=== PATIENT | female | born 1995 | race Caucasian/White ===

== ENCOUNTER 2017-11-18 21:21 | Outpatient (CLI) | payer OTHER | END 2017-11-18 21:22 | disposition critical access hospital (66) | LOC: EMS 21:21 | PROVIDERS: ATTEND Surgery | DX: R10.9 Unspecified abdominal pain (principal) | CPT/HCPCS: A0425; A0429 ==

== ENCOUNTER 2017-11-18 21:38 | Emergency (ER) | payer OTHER ==
[2017-11-18 22:10] LABS: BASOPHILS % (AUTO) 0.5 %; EOSINOPHILS % (AUTO) 0.3 %; LYMPHOCYTES # (AUTO) 1.2 10^3/uL (1.5-3.5); LYMPHOCYTES % (AUTO) 13.6 %; MEAN CORPUSCULAR HEMOGLOBIN 28.3 pg (27.0-31.0); MEAN CORPUSCULAR VOLUME 88.4 fL (81.0-99.0); MEAN PLATELET VOLUME 8.8 fL (7.9-10.8); MONOCYTES # (AUTO) 0.4 10^3/uL (0.0-1.0); MONOCYTES % (AUTO) 4.3 %; NEUTROPHILS # (AUTO) 7.5 10^3/uL (1.5-6.6); NEUTROPHILS % (AUTO) 81.3 %; PLT - PLATELET COUNT 312 10^3/uL (130-450); RED BLOOD COUNT 4.94 10^6/uL (4.20-5.40); RED CELL DISTRIBUTION WIDTH 14.1 % (12.0-15.0); WHITE BLOOD COUNT 9.2 x10^3/uL (4.8-10.8)
[2017-11-18 22:17] LABS: ALBUMIN 4.5 g/dL (3.2-5.5); ALBUMIN/GLOBULIN RATIO 1.2 (1.0-2.2); BILIRUBIN,TOTAL 0.6 mg/dL (0.2-1.0); CALCIUM 9.4 mg/dL (8.5-10.3); CREATININE 0.7 mg/dL (0.4-1.0); TOTAL PROTEIN 8.2 g/dL (6.7-8.2)
[2017-11-18] MEDS ORDERED: SODIUM CHLORIDE 0.9% 1,000 ML IV ONE (22:51)
[2017-11-18] MEDS ORDERED: MORPHINE 2 MG/ML CARPUJECT IVP STA (22:51)
[2017-11-18] MEDS ORDERED: ONDANSETRON 4 MG/2 ML VIAL IVP STA (22:51)
[2017-11-18] MEDS ORDERED: IOPAMIDOL-300 100 ML VIAL ONE (23:16)
[2017-11-18] MEDS ORDERED: IOPAMIDOL-300 100 ML VIAL IVP ONE (23:28)
--- NOTE | 2017-11-18 23:50 | CT Report ---
EXAM: CT ABDOMEN AND PELVIS EXAM DATE: 11/18/2017 11:31 PM. CLINICAL HISTORY: Crohns, abdominal pain. COMPARISONS: None. TECHNIQUE: Routine helical CT imaging was performed through the abdomen and pelvis. IV contrast: 100M L ISOVUE 300. Enteric contrast: No. Reconstructions: Coronal and sagittal. In accordance with CT protocol optimization, one or more of the following dose reduction techniques w ere utilized for this exam: automated exposure control, adjustment of mA and/or KV based on patient s ize, or use of iterative reconstructive technique. FINDINGS: Lung Bases: No acute findings. Liver: Normal. No masses. Gallbladder/Bile Ducts: Unremarkable. Spleen: Normal. Pancreas: Normal. Adrenal Glands: Normal. Kidneys: Normal. No masses or hydronephrosis. Peritoneal Cavity/Bowel: No acute findings. Right-sided colon postsurgical change. No dilated bowel l oops are seen. Evaluation limited without oral contrast. No definite bowel wall thickening or acute i nflammation seen. No free fluid or free air. Pelvic Organs: Normal. The bladder and visualized pelvic organs are within normal limits. Dominant fo llicle in the right ovary measures 2 cm. Vasculature: No acute findings. Bones: No acute bone findings. IMPRESSION: No acute findings. [facility] Referring Provider Line: [phone] SITE ID: [id number]
[2017-11-18 23:59] VITALS: BP 105/59
[2017-11-19 00:01] LABS: BILIRUBIN,URINE NEGATIVE (NEGATIVE); GLUCOSE, URINE (UA) NEGATIVE (NEGATIVE); KETONES,URINE (UA) 40 mg/dL (NEGATIVE); LEUKOCYTE ESTERASE, URINE NEGATIVE (NEGATIVE); NITRITE,URINE NEGATIVE (NEGATIVE); OCCULT BLOOD,URINE TRACE-INTA (NEGATIVE); PROTEIN,URINE NEGATIVE (NEGATIVE); UROBILINOGEN,URINE 0.2 (NORMAL) E.U./dL (NORMAL)
[2017-11-19 00:02] LABS: CLARITY,URINE CLEAR (CLEAR)
[2017-11-19 00:04] LABS: HCG UR QUAL NEGATIVE
--- NOTE | 2017-11-19 00:27 | ED Physician Documentation ---
PD HPI ABD PAIN - Stated complaint Stated Complaint: ABD PAIN - Chief complaint Chief Complaint: Abd Pain - History obtained from History obtained from: Patient, Friend - History of Present Illness Timing - onset: How many weeks ago (2) Timing - details: Gradual onset, Intermittant Quality: Cramping, Aching, Sharp Location: RUQ, RLQ Associated symptoms: Nausea, Near syncope / syncope. No: Fever, Vomiting, Diarrhea, Constipation Similar symptoms before: Work up / diagnostics, Treatment Recently seen: Not recently seen - Additional information Additional information: Patient is a 22 year old female with a history of crohns, s/p resection who is presenting to the emergency department for abdominal pain. patient states that it has been going on for over a week but she just recently moved out here and doesnt' have a doctor yet. Patient states that she has had adverse reactions to multiple drugs in the past so does not take regular therapy. Patient complains of mild nausea but no vomiting, diarrhea or constipation. Review of Systems Constitutional: denies: Fever, Chills Eyes: denies: Decreased vision, Photophobia Ears: reports: Reviewed and negative Nose: reports: Reviewed and negative Throat: reports: Reviewed and negative Cardiac: reports: Reviewed and negative Respiratory: denies: Cough, Wheezing GI: reports: Abdominal Pain, Nausea. 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 : None HEENT: None Psych: None Musculoskeletal: Rheumatoid arthritis Derm: None - Past Surgical History Past Surgical History: Yes General: Appendectomy, Other HEENT: Tonsil/Adenoidectomy - Present Medications Home Medications: Ambulatory Orders Medication Instructions Recorded Confirmed Budesonide [Uceris] 9 mg PO DAILY #30 tabdr...er 11/19/17 Ondansetron Odt [Zofran Odt] 4 mg TL Q6H PRN #20 tablet 11/19/17 Oxycodone HCl/Acetaminophen 1 - 2 each PO Q6H PRN #14 tablet 11/19/17 [Percocet 5-325 mg Tablet] - Allergies Allergies/Adverse Reactions: Allergies Allergy/AdvReac Type Severity Reaction Status Date / Time No Known Drug Allergies Allergy Verified 11/18/17 21:43 - Social History Does the pt smoke?: No Smoking Status: Never smoker Does the pt drink ETOH?: No Does the pt have substance abuse?: No - Immunizations Immunizations are current?: No - POLST Patient has POLST: No PD ED PE NORMAL - Vitals Vital signs reviewed: Yes - General General: Alert and oriented X 3, No acute distress - HEENT HEENT: Atraumatic, PERRL - Neck Neck: Supple, no meningeal sign - Cardiac Cardiac: RRR, No murmur - Respiratory Respiratory: No respiratory distress - Derm Derm: Normal color, Warm and dry, No rash - Extremities Extremities: No deformity - Neuro Neuro: Alert and oriented X 3, No motor deficit, No sensory deficit, Normal speech Eye Opening: Spontaneous Motor: Obeys Commands Verbal: Oriented GCS Score: 15 - Psych Psych: Normal mood PD ED PE EXPANDED - HEENT HEENT: Dry mucous membranes - Abdomen Abdomen: Tender to palpation, RUQ, RLQ. No: Distended, Rebound, Guarding Results - Vitals Vitals: Vital Signs - 24 hr 11/18/17 11/18/17 11/18/17 21:39 23:06 23:10 Temperature 36.7 C Heart Rate 100 89 82 Respiratory 20 18 17 Rate Blood Pressure 117/80 118/85 H O2 Saturation 97 97 11/18/17 11/18/17 23:53 23:57 Temperature Heart Rate 89 78 Respiratory 17 17 Rate Blood Pressure 105/59 L O2 Saturation 100 100 Oxygen O2 Source CPAP - Labs Labs: Laboratory Tests 11/18/17 11/18/17 11/18/17 21:53 21:53 23:50 WBC 9.2 RBC 4.94 Hgb 14.0 Hct 43.7 MCV 88.4 MCH 28.3 MCHC 32.0 RDW 14.1 Plt Count 312 MPV 8.8 Neut # 7.5 H Lymph # 1.2 L Grainger # 0.4 Eos # 0.0 Baso # 0.0 Absolute Nucleated RBC 0.00 Nucleated RBC % 0.0 Sodium 137 Potassium 3.9 Chloride 102 Carbon Dioxide 23 Anion Gap 12.0 BUN 12 Creatinine 0.7 Estimated GFR (MDRD) 106 Glucose 92 Calcium 9.4 Total Bilirubin 0.6 AST 20 ALT 17 Alkaline Phosphatase 56 Total Protein 8.2 Albumin 4.5 Globulin 3.7 Albumin/Globulin Ratio 1.2 Lipase 23 Urine Color YELLOW Urine Clarity CLEAR Urine pH 6.0 Ur Specific [place] 1.015 Urine Protein NEGATIVE Urine Glucose (UA) NEGATIVE Urine Ketones 40 H Urine Occult Blood TRACE-INTA Urine Nitrite NEGATIVE Urine Bilirubin NEGATIVE Urine Urobilinogen 0.2 (NORMAL) Ur Leukocyte Esterase NEGATIVE Ur Microscopic Review NOT INDICATED Urine Culture Comments NOT INDICATED Urine HCG, Qual 11/18/17 23:50 WBC RBC Hgb Hct MCV MCH MCHC RDW Plt Count MPV Neut # Lymph # Grainger # Eos # Baso # Absolute Nucleated RBC Nucleated RBC % Sodium Potassium Chloride Carbon Dioxide Anion Gap BUN Creatinine Estimated GFR (MDRD) Glucose Calcium Total Bilirubin AST ALT Alkaline Phosphatase Total Protein Albumin Globulin Albumin/Globulin Ratio Lipase Urine Color Urine Clarity Urine pH Ur Specific [place] 1.015 Urine Protein Urine Glucose (UA) Urine Ketones Urine Occult Blood Urine Nitrite Urine Bilirubin Urine Urobilinogen Ur Leukocyte Esterase Ur Microscopic Review Urine Culture Comments Urine HCG, Qual NEGATIVE - Rads (name of study) Ct abdomen/pelvis Radiology: Final report received (no acute infection, inflammation abscess or fluid collection appreciated), See rad report PD MEDICAL DECISION MAKING - ED course Complexity details: reviewed old records, reviewed results, re-evaluated patient , considered differential, d/w patient ED course: Patient was seen and examined at bedside. IV access was gained, labs were drawn. Patient was treated with IV fluids, zofran and morphine. Imaging was ordered. Patient's diagnostics were all within normal limits. patient did required a follow up colonoscopy but was appropriate for follow up in an outpatient setting. prescriptions were written and patient was started on steroids. Patient was given detailed discharge and follow up instructions and was stable for discharge with outpatient follow up. Departure - Departure Disposition: 01 Home, Self Care Clinical Impression: Acute Crohn's disease Condition: Good Instructions: Disease Crohn Dc Follow-Up: Lambert Parnell MD [Provider Admit Priv/Credential] - Within 1 week Prescriptions: Budesonide [Uceris] 9 mg PO DAILY #30 tabdr...er Ondansetron Odt [Zofran Odt] 4 mg TL Q6H PRN #20 tablet PRN Reason: Nausea / Vomiting Oxycodone HCl/Acetaminophen [Percocet 5-325 mg Tablet] 1 - 2 each PO Q6H PRN # 14 tablet PRN Reason: pain Comments: Your diagnostics today revealed dehydration but no sign of abscess or infection. You will be started on a steroid and pain medication but you will need another colonoscopy. You should follow up with [facility] to find out who your pmd is and GI referral. You can call Dr. Lopez's office if you are unable to schedule an appointment with your doctor but it is important that you establish care with a GI specialist. You can take tylenol as needed for pain and percocet for breakthrough pain. It is important that you stay well hydrated. You may return to the emergency department at any time for new, worsening or uncontrollable symptoms.
== END 2017-11-19 00:47 | disposition home or self-care (01) ==
LOC: ED 21:38
DX: K50.90 Crohn's disease, unspecified, without complications (principal); E86.0 Dehydration
CPT/HCPCS: 36415; 74177; 80053; 81003; 81025; 83690; 85025; 96361; 96374; 99284; 99285; Q9967; 81001; 87086

== ENCOUNTER 2019-05-09 22:33 | Emergency (ER) | payer OTHER ==
[2019-05-09] MEDS ORDERED: LIDOCAINE-EPINEPH-TETRACAINE 3 ML SYRINGE TOP STA (22:55)
--- NOTE | 2019-05-09 23:22 | ED Physician Documentation ---
PD HPI ANIMAL BITE - Stated complaint Stated Complaint: DOG BITE LT - Chief complaint Chief Complaint: Laceration - History obtained from History obtained from: Patient - History of Present Illness Location of injury(ies): Left hand Details of the event: Dog, Pet animal, Well appearing, Immunized, Provoked, Animal can be observed Timing - onset: Enter time (22:20) Timing - details: Abrupt onset Pain level now: 5 Improved by: Rest Worsened by: Moving, Palpating Associated symptoms: No: Weakness, Numbness Similar symptoms before: Has not had sx before Recently seen: Not recently seen - Additional information Additional information: patient is right-hand dominant. Tonight at approximately 10:20 she was bitten by her newly-adopted dog when trying to break up a fight between her two dogs. c/o left second finger tip pain. 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 : None HEENT: None Psych: None Musculoskeletal: Rheumatoid arthritis Derm: None - Past Surgical History Past Surgical History: Yes General: Appendectomy, Other HEENT: Tonsil/Adenoidectomy - Present Medications Home Medications: Ambulatory Orders Medication Instructions Recorded Confirmed Budesonide [Uceris] 9 mg PO DAILY #30 tabdr...er 11/19/17 Ondansetron Odt [Zofran Odt] 4 mg TL Q6H PRN #20 tablet 11/19/17 Oxycodone HCl/Acetaminophen 1 - 2 each PO Q6H PRN #14 tablet 11/19/17 [Percocet 5-325 mg Tablet] Doxycycline Hyclate 100 mg PO BID #9 capsule 05/10/19 HYDROcod/ACETAM 5/325 [[place] 5/325] 1 - 2 ea PO Q6H PRN #14 tablet 05/10/19 - Allergies Allergies/Adverse Reactions: Allergies Allergy/AdvReac Type Severity Reaction Status Date / Time No Known Drug Allergies Allergy Verified 05/09/19 22:41 - Social History Does the pt smoke?: No Smoking Status: Never smoker Does the pt drink ETOH?: Yes Does the pt have substance abuse?: Yes Substance Use and Type: Marijuana - Immunizations Immunizations are current?: Yes - POLST Patient has POLST: No PD ED PE NORMAL - Vitals Vital signs reviewed: Yes - General General: Alert and oriented X 3, No acute distress, Well developed/nourished PD ED PE EXPANDED - Extremities Extremities: Other (left second digit (finger): there is bony tenderness of distal phalanx but nontender at PIP and DIP joints with FROM intact (flexion and extension) in these joints. The fingernail is avulsed from the proximal nail fold except at the lateral (ulnar) corner where it is in place. The medial corner (proximal/medial nail) is avulsed from the fold, and the rest of the nail is avulsed along with the skin of the nail fold (the proximal nail fold remains attached to the proximal nail). the remainder of the nail is firmly adhered to the nail bed and there is no evidence of laceration) Results - Vitals Vitals: Oxygen O2 Source Room air - Rads (name of study) xray left second finger Radiology: Prelim report reviewed, See rad report Procedures - Regional nerve block Nerve block site: Digital - note digit(s) (left second finger) Nerve block anesthesia: Lidocaine 1%, Other (bupvicaine 0.5% (50:50 mix with li docaine 1%)) Nerve block aftercare: Moderate Anesthesia (required second injections due to inadequate anesthesia with initial dosing; a total of 8 cc used) PD MEDICAL DECISION MAKING - ED course Complexity details: re-evaluated patient, considered differential, d/w patient ED course: Following digital block, moderate anesthesia was achieved. the proximal nail fold at the corner was put back in place under the nail fold corner. As noted, above, the majority of the nail fold had avulsed with the proximal nail itself and was still attached to the nail. Steri-strips reinforced with benzoin were placed to keep the nail in place and a splint was then placed. Departure - Departure Disposition: 01 Home, Self Care Clinical Impression: Dog bite of finger Qualifiers: Encounter type: initial encounter Qualified Code(s): S61.259A - Open bite of unspecified finger without damage to nail, initial encounter Condition: Good Health Concerns: dog bite to finger Plan of Treatment: wound check in 3-5 days. antibiotic as prescribed for wound prophylaxis Care Goals: symptom control, prevention of infection Assessment: see diagnosis Instructions: ED Crush Injury Finger No Fx, ED Bite Dog Follow-Up: [facility] [Provider Group] (Follow up in 3-4 days for wound check) Prescriptions: Doxycycline Hyclate 100 mg PO BID #9 capsule HYDROcod/ACETAM 5/325 [[place] 5/325] 1 - 2 ea PO Q6H PRN #14 tablet PRN Reason: Pain Discharge Date/Time: 05/10/19 02:12
[2019-05-09] MEDS ORDERED: LIDOCAINE 1% 2 ML VIAL SUBQ STA (23:37)
[2019-05-09] MEDS ORDERED: BUPIVACAINE 0.5% PF 10 ML VIAL SUBQ STA (23:38)
--- NOTE | 2019-05-10 00:07 | XRAY Report ---
Reason: dog bite Procedure Date: 05/09/2019 Accession Number: [id number] / [id number] Procedure: XR - Finger(s) LT CPT Code: FULL RESULT: EXAM: LEFT SECOND DIGIT RADIOGRAPHY EXAM DATE: 05/09/2019 11:54 PM. CLINICAL HISTORY: Pain after injury. Dog bite. COMPARISON: None. TECHNIQUE: 3 views. FINDINGS: Bones: No fracture seen. Joints: No dislocation. Joint spaces appear preserved. Soft Tissues: Soft tissue swelling. No radiopaque foreign body identified. IMPRESSION: 1. No fracture or foreign body seen. [facility]
[2019-05-10] MEDS ORDERED: HYDROcod/ACET 5/325 Prepack 4 PO STA (01:48)
[2019-05-10] MEDS ORDERED: DOXYCYCLINE 100 MG TABLET PO STA (01:48)
[2019-05-10 02:11] VITALS: BP 130/80
== END 2019-05-10 02:12 | disposition home or self-care (01) ==
LOC: ED 22:33
DX: S61.351A Open bite of left index finger with damage to nail, initial encounter (principal); W54.0XXA Bitten by dog, initial encounter; Y93.89 Activity, other specified
CPT/HCPCS: 73140; 99283; A9270

== ENCOUNTER 2019-07-04 18:41 | Emergency (ER) | payer OTHER ==
[2019-07-04] MEDS ORDERED: HYDROmorphone 1 MG/ML CARPUJECT IM STA (19:01)
[2019-07-04] MEDS ORDERED: LIDOCAINE 2%-EPI 1:100000 20 ML MDV SUBQ STA (19:01)
[2019-07-04] MEDS ORDERED: CLINDAMYCIN 150 MG CAPSULE PO STA (19:42)
--- NOTE | 2019-07-04 19:46 | ED Physician Documentation ---
History of Present Illness - Stated complaint Stated Complaint: POSS INSECT BITE/TAIL BONE - Chief complaint Chief Complaint: Wound - History obtained from History obtained from: Patient - History of Present Illness Timing: How many weeks ago (1) Pain level max: 8 Pain level now: 8 Improved by: nothing Worsened by: palpation - Additonal information Additional information: 24-year-old female with a history of Crohn's disease presents to the emergency department with swelling to the tailbone area for the past week. Increasing pain. No fevers. Had a cyst in that area before that was drained. This was several years ago. 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 : None HEENT: None Psych: None Musculoskeletal: Rheumatoid arthritis Derm: None - Past Surgical History Past Surgical History: Yes General: Appendectomy, Other HEENT: Tonsil/Adenoidectomy - Present Medications Home Medications: Ambulatory Orders Medication Instructions Recorded Confirmed Budesonide [Uceris] 9 mg PO DAILY #30 tabdr...er 11/19/17 Ondansetron Odt [Zofran Odt] 4 mg TL Q6H PRN #20 tablet 11/19/17 Oxycodone HCl/Acetaminophen 1 - 2 each PO Q6H PRN #14 tablet 11/19/17 [Percocet 5-325 mg Tablet] Doxycycline Hyclate 100 mg PO BID #9 capsule 05/10/19 HYDROcod/ACETAM 5/325 [[place] 5/325] 1 - 2 ea PO Q6H PRN #14 tablet 05/10/19 Clindamycin HCl [Clindamycin 300MG 300 mg PO Q6H #40 capsule 07/04/19 CAP] Oxycodone HCl/Acetaminophen 1 - 2 each PO Q6H PRN #14 tablet 07/04/19 [Percocet 5-325 mg Tablet] - Allergies Allergies/Adverse Reactions: Allergies Allergy/AdvReac Type Severity Reaction Status Date / Time No Known Drug Allergies Allergy Verified 07/04/19 18:48 - Social History Does the pt smoke?: No Smoking Status: Never smoker Does the pt drink ETOH?: Yes Does the pt have substance abuse?: Yes - Immunizations Immunizations are current?: Yes - POLST Patient has POLST: No PD ED PE NORMAL - Vitals Vital signs reviewed: Yes - General General: Alert and oriented X 3, No acute distress - HEENT HEENT: Moist mucous membranes - Neck Neck: Supple, no meningeal sign - Cardiac Cardiac: RRR - Respiratory Respiratory: No respiratory distress, Clear bilaterally - Derm Derm: Warm and dry - Extremities Extremities: Other (3x4 cm L buttock pilonidal abscess. NVI) - Neuro Neuro: Alert and oriented X 3 Results - Vitals Vitals: Vital Signs - 24 hr 07/04/19 07/04/19 18:45 19:55 Temperature 36.5 C Heart Rate 113 H 89 Respiratory 19 18 Rate Blood Pressure 136/105 H 124/85 H O2 Saturation 97 99 Oxygen O2 Source Room air Procedures - Abscess I&D (location) pilonidal cyst Preparation: Chlorhexadine, Lidocaine 2 %, With epi Incision: Incised with scalpel, Purulent drainage, Irrigated, Packed, Culture obtained Other: Pt tolerated well, Dressing applied, Antibiotic prescribed PD MEDICAL DECISION MAKING - ED course Complexity details: considered differential, d/w patient ED course: 24-year-old female with a pilonidal cyst. This was incised and drained. Tolerated well. Will place on antibiotics and pain medication for home. Patient counseled regarding signs and symptoms for which I believe and urgent re-evaluation would be necessary. Patient with good understanding of and agreement to plan and is comfortable going home at this time This document was made in part using voice recognition software. While efforts are made to proofread this document, sound alike and grammatical errors may occur. Departure - Departure Disposition: 01 Home, Self Care Clinical Impression: Pilonidal cyst with abscess Condition: Good Instructions: ED Cyst Pilonidal Infected IandD Follow-Up: Radha Chamorro MD [Primary Care Provider] - Within 3 Days Prescriptions: Clindamycin HCl [Clindamycin 300MG CAP] 300 mg PO Q6H #40 capsule Oxycodone HCl/Acetaminophen [Percocet 5-325 mg Tablet] 1 - 2 each PO Q6H PRN #14 tablet PRN Reason: pain Comments: Take all antibiotics until gone. Return if you worsen. Follow-up with your doctor in 2 to 3 days for a wound check. The abscess will not need to be repacked. If you are unable to see her doctor, return here for repeat evaluation. Do not drink alcohol or drive while on narcotic pain medicine. Note that many narcotic pain relievers also contain tylenol/acetaminophen. Ple ase ensure that your total dose of acetaminophen from all sources does not exceed 3 grams (3000mg) per day. You may constipated on this medication, take a stool softener such as "Colace" twice a day while you are on it. Also recommend a [id number] laxative such as senna or MiraLAX any day that you do not have a bowel movement. If you received narcotic pain medication in the emergency department, do not drive or operate machinery for the next 24 hours. Discharge Date/Time: 07/04/19 19:59
[2019-07-04 19:56] VITALS: BP 124/85
== END 2019-07-04 19:59 | disposition home or self-care (01) ==
LOC: ED 18:41
DX: L05.01 Pilonidal cyst with abscess (principal)
CPT/HCPCS: 10080; 87070; 87205; 96372; 99283; 99284; A9270; J1170